=== PATIENT | male | born 1985 | race Caucasian/White ===

== ENCOUNTER 2016-11-24 11:17 | Emergency (ER) | payer MEDICAID | END 2016-11-24 12:55 | disposition left against medical advice (07) | LOC: D.ER 11:17 | DX: R51 Headache (principal) ==

== ENCOUNTER 2016-12-05 20:19 | Emergency (ER) | payer MEDICAID ==
[2016-12-05 22:58] LABS: BASOPHILS 0.1 % (0.0-2.0); EOSINOPHILS 0 % (0-7); HEMATOCRIT 36.6 % (42.0-54.0); HEMOGLOBIN 12.5 g/dL (13.5-17.5); IMMATURE GRANULOCYTES 0.7 % (0-5); LYMPHOCYTES 14.5 % (15-50); MCH 31.1 pg (26.0-34.0); MCHC 34.2 g/dL (31.0-37.0); MEAN PLATELET VOLUME 8.6 fL (7.4-10.4); MONOCYTES 9.7 % (2-11); PLATELET COUNT 215 10x3/uL (130-400); RBC 4.02 10x6/uL (4.20-6.10); RDW 12.1 % (11.5-14.5); WBC 7.1 10x3/uL (4.8-10.8)
[2016-12-05 23:14] LABS: CALC OSMOLALITY 270 mosm/kg (275-300); CALCIUM 8.5 mg/dL (8.5-10.1); CARBON DIOXIDE 27.3 mmol/L (21.0-32.0); CHLORIDE - SERUM 99 mmol/L (98-107); CREATININE - SERUM 1.1 mg/dL (0.6-1.3); GLUCOSE 112 mg/dL (74-106); POTASSIUM - SERUM 3.3 mmol/L (3.5-5.1); SODIUM 135 mmol/L (136-145); UREA NITROGEN 12 mg/dL (7-18); eGFR NON AFRICAN AMERICAN 83 mL/min (90-120)
== END 2016-12-05 23:53 | disposition home or self-care (01) ==
LOC: D.ER 20:19
PROVIDERS: Nurse Practitioner Acute Care
DX: J20.9 Acute bronchitis, unspecified (principal); F41.0 Panic disorder [episodic paroxysmal anxiety]; J45.909 Unspecified asthma, uncomplicated

== ENCOUNTER 2016-12-15 17:51 | Emergency (ER) | payer MEDICAID ==
[2016-12-15 18:38] LABS: BASOPHILS 0 % (0.0-2.0); EOSINOPHILS 0.4 % (0-7); HEMATOCRIT 37.9 % (42.0-54.0); IMMATURE GRANULOCYTES 0.3 % (0-5); LYMPHOCYTES 24.6 % (15-50); MCH 31.2 pg (26.0-34.0); MCHC 34.3 g/dL (31.0-37.0); MCV 90.9 fL (80.0-100.0); MEAN PLATELET VOLUME 8.9 fL (7.4-10.4); MONOCYTES 8.8 % (2-11); NEUTROPHILS 65.9 % (40-80); RBC 4.17 10x6/uL (4.20-6.10); RDW 11.9 % (11.5-14.5); WBC 6.7 10x3/uL (4.8-10.8)
[2016-12-15 18:43] LABS: PLATELET COUNT 283 10x3/uL (130-400)
[2016-12-15 18:55] LABS: APPEARANCE SLT CLOUDY (CLEAR); BACTERIA FEW /hpf (NONE SEEN); BILIRUBIN NEGATIVE (NEGATIVE); COLOR YELLOW (YELLOW); EPITHELIAL CELLS OCC /hpf (0-5); GLUCOSE NEGATIVE (NEGATIVE); KETONE NEGATIVE (NEGATIVE); LEUKOCYTE ESTERASE TRACE (NEGATIVE); MUCUS <1+ /lpf (NONE SEEN); NITRITE NEGATIVE (NEGATIVE); PROTEIN NEGATIVE (NEGATIVE); RED CELLS - URINE >50 /hpf (0-5); SPECIFIC GRAVITY 1.005 (1.005-1.020); UROBILINOGEN NORMAL (NORMAL); WHITE CELLS - URINE 0-5 /hpf (0-5)
[2016-12-15 19:03] LABS: ALBUMIN 3.5 g/dL (3.4-5.0); ALKALINE PHOSPHATASE 74 U/L (46-116); ALT (SGPT) 38 U/L (10-68); BILIRUBIN - TOTAL 0.61 mg/dL (0.2-1.3); CALC OSMOLALITY 277 mosm/kg (275-300); CALCIUM 8.8 mg/dL (8.5-10.1); CARBON DIOXIDE 32.2 mmol/L (21.0-32.0); CHLORIDE - SERUM 102 mmol/L (98-107); GLUCOSE 112 mg/dL (74-106); POTASSIUM - SERUM 3.8 mmol/L (3.5-5.1); PROTEIN - SERUM 6.4 g/dL (6.4-8.2); SODIUM 140 mmol/L (136-145); UREA NITROGEN 7 mg/dL (7-18); eGFR NON AFRICAN AMERICAN > 90 mL/min (90-120)
== END 2016-12-15 22:12 | disposition home or self-care (01) ==
LOC: D.ER 17:51
PROVIDERS: Family Medicine
DX: R10.9 Unspecified abdominal pain (principal); R31.9 Hematuria, unspecified; J20.9 Acute bronchitis, unspecified; J45.909 Unspecified asthma, uncomplicated; F41.0 Panic disorder [episodic paroxysmal anxiety]; F17.200 Nicotine dependence, unspecified, uncomplicated

== ENCOUNTER 2017-08-26 20:52 | Emergency (ER) | payer MEDICAID | END 2017-08-26 22:33 | disposition home or self-care (01) | LOC: D.ER 20:52 | DX: M94.0 Chondrocostal junction syndrome [Tietze] (principal); F17.200 Nicotine dependence, unspecified, uncomplicated ==

== ENCOUNTER 2018-11-28 08:25 | Emergency (ER) | payer SELFPAY ==
[~2018-11-28] VITALS: Ht 180.3 cm; Wt 97.7 kg
[2018-11-28 08:35] VITALS: Ht 180.3 cm; Wt 97.7 kg
[2018-11-28] MEDS ORDERED: XOFLUZA40 MG PO (09:22)
[2018-11-28 09:42] VITALS: BP 122/79
== END 2018-11-28 09:30 | disposition home or self-care (01) ==
LOC: D.ER 08:25
DX: J09.X2 Influenza due to identified novel influenza A virus with other respiratory manifestations (principal); R05 Cough; M79.18 Myalgia, other site

== ENCOUNTER 2019-02-17 22:09 | Emergency (ER) | payer BC ==
[~2019-02-17] VITALS: Ht 180.3 cm; Wt 96.2 kg
[~2019-02-17 22:09] MED LIST: XOFLUZA40 MG PO
[2019-02-17 22:18] VITALS: Ht 180.3 cm; Wt 96.2 kg
[2019-02-17] MEDS ORDERED: VOLTAREN75 MG PO (22:46)
[2019-02-17] MEDS ORDERED: BACLOFEN20 M1 PO (22:46)
[2019-02-17 23:59] VITALS: BP 127/81
== END 2019-02-17 23:59 | disposition home or self-care (01) ==
LOC: D.ER 22:09
DX: M54.5 Low back pain (principal); M62.838 Other muscle spasm; W18.30XA Fall on same level, unspecified, initial encounter; Y93.89 Activity, other specified; Y92.89 Other specified places as the place of occurrence of the external cause

== ENCOUNTER 2019-03-07 17:36 | Emergency (ER) | payer MEDICAID ==
[~2019-03-07 17:36] MED LIST changes: +BACLOFEN20 M1 PO; +VOLTAREN75 MG PO
[2019-03-07 17:39] VITALS: BMI 29.7
[2019-03-07 18:16] LABS: BASOPHILS 0.1 % (0-2); EOSINOPHILS 0.5 % (0-7); HEMATOCRIT 42.8 % (42.0-54.0); HEMOGLOBIN 15.3 g/dL (13.5-17.5); IMMATURE GRANULOCYTES 0.4 % (0-5); LYMPHOCYTES 25.3 % (15-50); MCH 32.1 pg (26.0-34.0); MCHC 35.7 g/dL (31.0-37.0); MCV 89.7 fL (80.0-100.0); MEAN PLATELET VOLUME 8.8 fL (7.4-10.4); MONOCYTES 6.9 % (2-11); NEUTROPHILS 66.8 % (40-80); PLATELET COUNT 263 10x3/uL (130-400); RBC 4.77 10x6/uL (4.20-6.10); RDW 12.4 % (11.5-14.5); WBC 10.7 10x3/uL (4.8-10.8)
[2019-03-07 18:27] LABS: APPEARANCE CLOUDY (CLEAR); BILIRUBIN NEGATIVE (NEGATIVE); COLOR PINK (YELLOW); GLUCOSE NEGATIVE (NEGATIVE); KETONE NEGATIVE (NEGATIVE); NITRITE NEGATIVE (NEGATIVE); PROTEIN NEGATIVE (NEGATIVE); UROBILINOGEN NORMAL (NORMAL)
[2019-03-07 18:28] LABS: BACTERIA FEW /hpf (NONE SEEN); EPITHELIAL CELLS NSEEN /hpf (0-5); RED CELLS - URINE >50 /hpf (0-5); WHITE CELLS - URINE 0-5 /hpf (0-5)
[2019-03-07 18:45] LABS: ALBUMIN 3.4 g/dL (3.4-5.0); ALKALINE PHOSPHATASE 64 U/L (46-116); ALT (SGPT) 23 U/L (10-68); BILIRUBIN - TOTAL 0.36 mg/dL (0.2-1.3); CALC OSMOLALITY 280 mosm/kg (275-300); CALCIUM 8.3 mg/dL (8.5-10.1); CARBON DIOXIDE 26.8 mmol/L (21.0-32.0); CHLORIDE - SERUM 104 mmol/L (98-107); CREATININE - SERUM 0.9 mg/dL (0.6-1.3); GLUCOSE 120 mg/dL (74-106); POTASSIUM - SERUM 3.8 mmol/L (3.5-5.1); PROTEIN - SERUM 6.3 g/dL (6.4-8.2); SODIUM 140 mmol/L (136-145); UREA NITROGEN 15 mg/dL (7-18); eGFR NON AFRICAN AMERICAN > 90 mL/min (90-120)
[2019-03-07] MEDS ORDERED: TALWIN NX1 TAB PO (20:28)
[2019-03-07 21:19] VITALS: BP 123/83
== END 2019-03-07 21:18 | disposition home or self-care (01) ==
LOC: D.ER 17:36
PROVIDERS: Emergency Medicine
DX: R10.9 Unspecified abdominal pain (principal)

== ENCOUNTER 2019-07-26 14:52 | Emergency (ER) | payer MEDICAID ==
[~2019-07-26] VITALS: Ht 180.3 cm; Wt 97.3 kg
[~2019-07-26 14:52] MED LIST changes: +TALWIN NX1 TAB PO
[2019-07-26 14:55] VITALS: Ht 180.3 cm; Wt 97.3 kg
[2019-07-26] MEDS ORDERED: NEURONTIN 300300 MG PO (15:45)
[2019-07-26] MEDS ORDERED: NAPROSYN500 MG PO (15:45)
[2019-07-26 16:33] VITALS: BP 132/88
== END 2019-07-26 16:58 | disposition home or self-care (01) ==
LOC: D.ER 14:52
DX: M54.5 Low back pain (principal); M54.32 Sciatica, left side

== ENCOUNTER 2019-08-09 21:12 | Emergency (ER) | payer MEDICAID ==
[~2019-08-09] VITALS: Ht 180.3 cm; Wt 97.7 kg
[~2019-08-09 21:12] MED LIST changes: +NAPROSYN500 MG PO; +NEURONTIN 300300 MG PO
[2019-08-09 21:21] VITALS: Ht 180.3 cm; Wt 97.7 kg
[2019-08-09] MEDS ORDERED: MUCINEX DM ER1 EAC1 PO (21:58)
[2019-08-09 22:19] VITALS: BP 124/79
== END 2019-08-09 22:20 | disposition home or self-care (01) ==
LOC: D.ER 21:12
DX: J11.1 Influenza due to unidentified influenza virus with other respiratory manifestations (principal)

== ENCOUNTER 2020-01-25 10:13 | Emergency (ER) | payer SELFPAY ==
[~2020-01-25 10:13] MED LIST changes: +ALBUTEROL SULF8.5 GM INH; +DICLOFENAC SODI50 MG PO; +KEFLEX500 MG PO; +MUCINEX DM ER1 EAC1 PO
[2020-01-25 10:19] VITALS: Ht 180.3 cm
[2020-01-25] MEDS ORDERED: ZYRTEC10 MG PO (11:21)
[2020-01-25] MEDS ORDERED: DOXYCYCLINE HY100 M2 PO (11:21)
[2020-01-25] MEDS ORDERED: FLUTICASONE PRO16 GM NASAL (11:21)
[2020-01-25 11:36] VITALS: BP 112/72
== END 2020-01-25 11:37 | disposition home or self-care (01) ==
LOC: D.ER 10:13
DX: J32.9 Chronic sinusitis, unspecified (principal); J30.9 Allergic rhinitis, unspecified; R51 Headache; R09.81 Nasal congestion

== ENCOUNTER 2020-02-29 12:29 | Emergency (ER) | payer MEDICAID ==
[~2020-02-29] VITALS: Ht 180.3 cm; Wt 109.1 kg
[~2020-02-29 12:29] MED LIST changes: +DOXYCYCLINE HY100 M2 PO; +FLUTICASONE PRO16 GM NASAL; +ZYRTEC10 MG PO
[2020-02-29 12:40] VITALS: Ht 180.3 cm; Wt 109.1 kg
[2020-02-29] MEDS ORDERED: ZYRTEC10 MG PO (13:11)
[2020-02-29] MEDS ORDERED: FLUTICASONE PRO16 GM NASAL (13:11)
[2020-02-29 13:19] VITALS: BP 138/72
== END 2020-02-29 13:20 | disposition home or self-care (01) ==
LOC: D.ER 12:29
DX: J30.9 Allergic rhinitis, unspecified (principal); J45.909 Unspecified asthma, uncomplicated; Z72.0 Tobacco use

== ENCOUNTER 2021-02-18 15:23 | Emergency (ER) | payer MEDICAID ==
[~2021-02-18] VITALS: Ht 177.8 cm; Wt 100.0 kg
[2021-02-18 15:27] VITALS: BP 137/64; Ht 177.8 cm; Wt 100.0 kg
[2021-02-18 16:27] LABS: BASOPHILS 0.3 % (0-2); EOSINOPHILS 0.9 % (0-7); HEMATOCRIT 41.5 % (42.0-54.0); HEMOGLOBIN 14.2 g/dL (13.5-17.5); LYMPHOCYTES 21.9 % (15-50); MCH 30.8 pg (26.0-34.0); MCHC 34.2 g/dL (31.0-37.0); MEAN PLATELET VOLUME 6.5 fL (7.4-10.4); MONOCYTES 8.5 % (2-11); NEUTROPHILS 68.4 % (40-80); PLATELET COUNT 301 10x3/uL (130-400); RBC 4.62 10x6/uL (4.20-6.10); RDW 12.4 % (11.5-14.5)
[2021-02-18 16:49] LABS: CALC OSMOLALITY 276 mosm/kg (275-300); CARBON DIOXIDE 27.7 mmol/L (21.0-32.0); CHLORIDE - SERUM 101 mmol/L (98-107); CREATININE - SERUM 0.9 mg/dL (0.6-1.3); GLUCOSE 112 mg/dL (74-106); SODIUM 138 mmol/L (136-145); UREA NITROGEN 12 mg/dL (7-18); eGFR NON AFRICAN AMERICAN > 90 mL/min (90-120)
[2021-02-18 16:51] LABS: ALBUMIN 3.6 g/dL (3.4-5.0); ALKALINE PHOSPHATASE 92 U/L (30-120); ALT (SGPT) 28 U/L (10-68); BILIRUBIN - TOTAL 0.32 mg/dL (0.2-1.3); PROTEIN - SERUM 7.1 g/dL (6.4-8.2)
[2021-02-18 17:05] LABS: BILIRUBIN NEGATIVE (NEGATIVE); KETONE NEGATIVE (NEGATIVE); NITRITE NEGATIVE (NEGATIVE); SQUAMOUS EPITHELIAL 0-5 HPF (0-4); UROBILINOGEN NORMAL mg/dL (< 2); WHITE CELLS - URINE 0-5 HPF (0-1)
[2021-02-18 17:06] LABS: AMORPHOUS SEDIMENT <1+ LPF (NONE SEEN)
== END 2021-02-18 20:15 | disposition left against medical advice (07) ==
LOC: D.ER 15:23
PROVIDERS: Emergency Medicine
DX: R10.9 Unspecified abdominal pain (principal); R31.9 Hematuria, unspecified; Z53.29 Procedure and treatment not carried out because of patient's decision for other reasons; J45.909 Unspecified asthma, uncomplicated; M25.531 Pain in right wrist; M79.662 Pain in left lower leg